=== PATIENT | female | born 1980 | race African-American/Black ===

== ENCOUNTER 2023-01-24 20:00 | Emergency (ER) | payer MEDICAID ==
[~2023-01-24] VITALS: Ht 170.2 cm; Wt 108.9 kg
[2023-01-24 20:16] VITALS: BP_SYST 131; PULSE 84; RESP 20; TEMP 97.7; O2SAT 99
[2023-01-24] MEDS ORDERED: ACETAMINOPHEN 500 MG TABLET PO ONE (22:15)
[2023-01-24] MEDS ORDERED: METOCLOPRAMIDE HCL 10 MG TABLET PO ONE (22:15)
[2023-01-24] MEDS ORDERED: IBUP-1969 PO (23:20)
[2023-01-24] MEDS ORDERED: METO-290 PO (23:20)
[2023-01-24 23:30] VITALS: BP_SYST 131; PULSE 84; RESP 20; TEMP 97.7; O2SAT 99
== END 2023-01-24 23:30 | disposition home or self-care (01) ==
LOC: SED 20:00
DX: R51.9 Headache, unspecified (principal); Z79.899 Other long term (current) drug therapy
CPT/HCPCS: 99283; J8597

== ENCOUNTER 2024-01-18 11:05 | Emergency (ER) | payer MEDICAID ==
[~2024-01-18] VITALS: Ht 170.2 cm; Wt 90.7 kg
[~2024-01-18 11:05] MED LIST: IBUP-1969 PO; METO-290 PO
[2024-01-18 11:16] VITALS: BP_SYST 135; PULSE 77; RESP 18; TEMP 98.3; O2SAT 98
[2024-01-18] MEDS ORDERED: IBUPROFEN 800 MG TABLET PO ONE (11:45)
[2024-01-18] MEDS: KETOROLAC TROMETHAMINE 60 MG/2 ML VIAL IM ONE (12:01)
[2024-01-18] MEDS ORDERED: IBUP-1971 PO (12:53)
[2024-01-18 13:12] VITALS: BP_SYST 126; PULSE 80; RESP 17; TEMP 97.8; O2SAT 100
== END 2024-01-18 13:08 | disposition home or self-care (01) ==
LOC: SED 11:05
DX: S83.8X2A Sprain of other specified parts of left knee, initial encounter (principal); G89.29 Other chronic pain; Z79.899 Other long term (current) drug therapy; Z79.2 Long term (current) use of antibiotics; V89.2XXA Person injured in unspecified motor-vehicle accident, traffic, initial encounter; Y93.89 Activity, other specified; Y92.89 Other specified places as the place of occurrence of the external cause; Y99.8 Other external cause status
CPT/HCPCS: 99283; 29505; 73564; 96372; J1885